=== PATIENT | female | born 1935 | race Caucasian/White ===

== ENCOUNTER 2016-11-27 12:19 | Emergency (ER) | payer MEDICARE | END 2016-11-27 17:09 | disposition home or self-care (01) | LOC: ER 12:19 | DX: R53.1 Weakness (principal); Z79.899 Other long term (current) drug therapy; Z79.4 Long term (current) use of insulin; F17.210 Nicotine dependence, cigarettes, uncomplicated | CPT/HCPCS: 36415; 71010; 80053; 81001; 82553; 82947; 83880; 84439; 84443; 84484; 85025; 85610; 93005 ==

== ENCOUNTER 2016-12-04 13:12 | Inpatient (IN) | payer MEDICARE, MEDICAID ==
[~2016-12-04] VITALS: Ht 165.1 cm; Wt 58.4 kg
[2016-12-04] MEDS: PAROXETINE HCL 20 MG TAB PO SCH (15:20)
[2016-12-04] MEDS ORDERED: GLUCAGON 1 MG VIAL IM PRN (15:20)
[2016-12-04] MEDS ORDERED: SALINE FLUSH 10 ML FLUSH PRN (15:20)
[2016-12-04] MEDS ORDERED: MAG HYDROX 30 ML UDC PO PRN (15:20)
[2016-12-04] MEDS: CLOPIDOGREL 75 MG TAB PO SCH (15:20)
[2016-12-04] MEDS ORDERED: BISACODYL EC 5 MG TAB PO PRN (15:20)
[2016-12-04] MEDS: VALSARTAN 80 MG TAB PO SCH (15:20)
[2016-12-04] MEDS ORDERED: ALU/MAG/SIM 30 ML UDC PO PRN (15:20)
[2016-12-04] MEDS ORDERED: BISACODYL 10 MG SUPP RECTAL PRN (15:20)
[2016-12-04] MEDS ORDERED: ACETAMINOPHEN 325 MG TAB PO PRN (15:20)
[2016-12-04] MEDS: Furosemide 20 MG TAB PO SCH (15:20)
[2016-12-04] MEDS: ASPIRIN 81 MG CHEW TAB PO SCH (15:20)
[2016-12-04] MEDS ORDERED: DEXTROSE 50% SYRINGE 50 ML IV PRN (15:20)
[2016-12-04] MEDS ORDERED: Hydrocodone/APAP 10/325 MG TAB PO PRN (15:20)
[2016-12-04] MEDS: PENTOXIFYLLINE 400 MG TAB PO SCH ×2 (16:00→21:00)
[2016-12-04] MEDS: amLODIPine 5 MG TAB PO SCH (17:35)
[2016-12-04] MEDS: ALPRAZOLAM 0.25 MG TAB PO SCH (18:00)
[2016-12-04] MEDS ORDERED: LORAZEPAM 2 MG/ML VIAL IV ONE (18:20)
[2016-12-04] MEDS ORDERED: LORAZEPAM 2 MG/ML VIAL ONE (18:30)
[2016-12-04 20:30] VITALS: BP_SYST 132; RESP 20; TEMP 98.6; Ht 165.1 cm; Wt 58.4 kg
[2016-12-04] MEDS: GLIMEPIRIDE 2 MG TAB PO SCH (21:00)
[2016-12-04] MEDS: Atorvastatin 40 MG TAB PO SCH (21:00)
[2016-12-04] MEDS: FAMOTIDINE 20 MG TAB PO SCH (21:00)
[2016-12-04] MEDS: LEVEMIR INSULIN SUBQ SCH (21:00)
[2016-12-04] MEDS: ARIPiprazole 10 MG TABLET PO SCH (21:00)
[2016-12-04] MEDS: METRONIDAZOLE 500MG/100ML 100 ML IV SCH (21:53)
[2016-12-04] MEDS: ENOXAPARIN 40 MG/0.4 ML SYR SUBQ SCH (21:53)
[2016-12-04] MEDS: SALINE FLUSH 10 ML FLUSH SCH (21:53)
[2016-12-04 22:00] VITALS: BP_SYST 158; RESP 16; TEMP 97.7
[2016-12-04 23:32] VITALS: BP_SYST 190; RESP 20; TEMP 97.6
[2016-12-05] VITALS (11 sets, daily range): BP systolic 110–195; RESP 17–24; TEMP 97–98.8
[2016-12-05] MEDS ORDERED: HALOPERIDOL 5 MG/ML VIAL IV ONE
[2016-12-05] MEDS: ALPRAZOLAM 0.25 MG TAB PO SCH ×5 (05:32→17:53)
[2016-12-05] MEDS: SODIUM CHLORIDE 0.9% FLUSH BAG 500 ML IV SCH (05:32)
[2016-12-05] MEDS: SALINE FLUSH 10 ML FLUSH SCH ×2 (08:41→21:29)
[2016-12-05] MEDS: METRONIDAZOLE 500MG/100ML 100 ML IV SCH ×3 (08:41→17:14)
[2016-12-05] MEDS: GLIMEPIRIDE 2 MG TAB PO SCH ×2 (09:32→21:28)
[2016-12-05] MEDS: FAMOTIDINE 20 MG TAB PO SCH ×2 (09:32→21:29)
[2016-12-05] MEDS: PAROXETINE HCL 20 MG TAB PO SCH (09:32)
[2016-12-05] MEDS: PENTOXIFYLLINE 400 MG TAB PO SCH ×3 (09:32→21:28)
[2016-12-05] MEDS: ASPIRIN 81 MG CHEW TAB PO SCH (09:32)
[2016-12-05] MEDS: CLOPIDOGREL 75 MG TAB PO SCH (09:32)
[2016-12-05] MEDS: Furosemide 20 MG TAB PO SCH (09:32)
[2016-12-05] MEDS: VALSARTAN 80 MG TAB PO SCH (09:32)
[2016-12-05] MEDS: amLODIPine 5 MG TAB PO SCH (09:32)
[2016-12-05] MEDS: ENOXAPARIN 40 MG/0.4 ML SYR SUBQ SCH (09:33)
[2016-12-05] MEDS: ROPINIROLE 0.25 MG TAB PO SCH ×3 (12:38→21:29)
[2016-12-05] MEDS: LEVEMIR INSULIN SUBQ SCH (21:00)
[2016-12-05] MEDS: ARIPiprazole 10 MG TABLET PO SCH (21:29)
[2016-12-05] MEDS: Atorvastatin 40 MG TAB PO SCH (21:29)
[2016-12-06] VITALS (7 sets, daily range): BP systolic 145–188; RESP 17–18; TEMP 97.2–98.3
[2016-12-06] MEDS: METRONIDAZOLE 500MG/100ML 100 ML IV SCH ×3 (00:17→16:18)
[2016-12-06] MEDS: ALPRAZOLAM 0.25 MG TAB PO SCH ×5 (00:17→20:41)
[2016-12-06] MEDS: SODIUM CHLORIDE 0.9% FLUSH BAG 500 ML IV SCH (06:28)
[2016-12-06] MEDS: PAROXETINE HCL 20 MG TAB PO SCH (08:44)
[2016-12-06] MEDS: PENTOXIFYLLINE 400 MG TAB PO SCH ×3 (08:44→20:41)
[2016-12-06] MEDS: FAMOTIDINE 20 MG TAB PO SCH ×2 (08:44→20:41)
[2016-12-06] MEDS: CLOPIDOGREL 75 MG TAB PO SCH (08:44)
[2016-12-06] MEDS: GLIMEPIRIDE 2 MG TAB PO SCH ×2 (08:44→20:41)
[2016-12-06] MEDS: Furosemide 20 MG TAB PO SCH (08:45)
[2016-12-06] MEDS: ROPINIROLE 0.25 MG TAB PO SCH ×3 (08:45→20:41)
[2016-12-06] MEDS: amLODIPine 5 MG TAB PO SCH (08:45)
[2016-12-06] MEDS: SALINE FLUSH 10 ML FLUSH SCH ×2 (08:45→20:41)
[2016-12-06] MEDS: VALSARTAN 80 MG TAB PO SCH (08:45)
[2016-12-06] MEDS: ASPIRIN 81 MG CHEW TAB PO SCH (08:45)
[2016-12-06] MEDS: ENOXAPARIN 40 MG/0.4 ML SYR SUBQ SCH (08:46)
[2016-12-06] MEDS ORDERED: KCL 20 MEQ/15 ML UDC PO ONE (09:05)
[2016-12-06] MEDS: Atorvastatin 40 MG TAB PO SCH (20:41)
[2016-12-06] MEDS: ARIPiprazole 10 MG TABLET PO SCH (20:41)
[2016-12-06] MEDS: LEVEMIR INSULIN SUBQ SCH (21:00)
[2016-12-07] MEDS: METRONIDAZOLE 500MG/100ML 100 ML IV SCH ×2 (00:02→08:35)
[2016-12-07] MEDS: ALPRAZOLAM 0.25 MG TAB PO SCH ×3 (00:02→12:00)
[2016-12-07 04:34] VITALS: BP_SYST 184; RESP 18; TEMP 97.3
[2016-12-07] MEDS: SODIUM CHLORIDE 0.9% FLUSH BAG 500 ML IV SCH (05:41)
[2016-12-07 08:03] VITALS: BP_SYST 205; BP_SYST 218; RESP 18; TEMP 97.4
[2016-12-07] MEDS ORDERED: MISSING DOSE XX ONE (08:30)
[2016-12-07] MEDS: SALINE FLUSH 10 ML FLUSH SCH (08:35)
[2016-12-07] MEDS: PENTOXIFYLLINE 400 MG TAB PO SCH (08:35)
[2016-12-07] MEDS: ROPINIROLE 0.25 MG TAB PO SCH (08:35)
[2016-12-07] MEDS: PAROXETINE HCL 20 MG TAB PO SCH (08:36)
[2016-12-07] MEDS: ASPIRIN 81 MG CHEW TAB PO SCH (08:36)
[2016-12-07] MEDS: Furosemide 20 MG TAB PO SCH (08:36)
[2016-12-07] MEDS: CLOPIDOGREL 75 MG TAB PO SCH (08:36)
[2016-12-07] MEDS: FAMOTIDINE 20 MG TAB PO SCH (08:36)
[2016-12-07] MEDS: GLIMEPIRIDE 2 MG TAB PO SCH (08:36)
[2016-12-07] MEDS: amLODIPine 5 MG TAB PO SCH (08:36)
[2016-12-07] MEDS: VALSARTAN 80 MG TAB PO SCH (08:36)
[2016-12-07] MEDS: ENOXAPARIN 40 MG/0.4 ML SYR SUBQ SCH (08:38)
[2016-12-07 11:50] VITALS: BP_SYST 175; RESP 18; TEMP 97.7
[2016-12-07 15:07] VITALS: BP_SYST 175; RESP 18; TEMP 97.7
[2016-12-07 15:46] VITALS: BP_SYST 156; RESP 18; TEMP 97.9
== END 2016-12-07 18:00 | disposition home or self-care (01) | DRG 66 ==
LOC: ENRESERVDT → ENRESERVTM → ER 13:12 → ENPENDDIS 15:36 → EMR 15:36 → PCU 17:24 → PCU2 12-05 04:16 → UNDODISIN 12-07 17:08
PROVIDERS: ADMIT Internal Medicine; ATTEND Internal Medicine
DX: I63.9 Cerebral infarction, unspecified (principal); G20 Parkinson's disease; E11.9 Type 2 diabetes mellitus without complications; I25.10 Atherosclerotic heart disease of native coronary artery without angina pectoris; Z95.1 Presence of aortocoronary bypass graft; F32.9 Major depressive disorder, single episode, unspecified; I73.9 Peripheral vascular disease, unspecified; I10 Essential (primary) hypertension; Z85.3 Personal history of malignant neoplasm of breast; Z85.42 Personal history of malignant neoplasm of other parts of uterus; Z51.5 Encounter for palliative care; Z87.891 Personal history of nicotine dependence; Z82.3 Family history of stroke; Z79.4 Long term (current) use of insulin
CPT/HCPCS: 36415; 70450; 70551; 71010; 80048; 80053; 81001; 82550; 82553; 82947; 83735; 83880; 84439; 84443; 84484; 85025; 85652; 86141; 87493; 93005; 93306; 93880; 94799; 99232; 99233; 99239